=== PATIENT | male | born 1950 | race Caucasian/White ===

== ENCOUNTER 2019-04-24 06:16 | Day surgery (SDC) | payer MEDICARE, BC ==
[2019-04-23 10:59] VITALS: BMI 32.3
[2019-04-24 07:53] LABS: INR-International Normal Ratio 1.1; PTT 27.8 SEC (22.9-36.1); Prothrombin Time 14.1 SEC (12.0-14.7)
[2019-04-24 07:54] LABS: Anion Gap 13 mmol/L (10-20); BUN (Urea Nitrogen) 16 mg/dL (8.4-25.7); Calc. Creatinine Clearance 53 mL/min (70-130); Calcium 9.2 mg/dL (7.8-10.44); Carbon Dioxide 26 mmol/L (23-31); Chloride 102 mmol/L (98-107); Estimated GFR-MDRD 39; Glucose 141 mg/dL (80-115); Sodium 137 mmol/L (136-145)
--- NOTE | 2019-04-24 08:53 | RAD ---
KUB: INDICATIONS: Preop evaluation. COMPARISON: None. FINDINGS: No suspicious calcification is evident. Bowel gas pattern is not obstructed. No acute osseous abnor mality is noted. There is moderate disk degenerative disease in the mid lumbar spine. IMPRESSION: No acute abnormality. POS: OFF
[2019-04-24] MEDS ORDERED: Morphine 4 MG/ML VIAL ONE (09:08)
[2019-04-24] MEDS ORDERED: Fentanyl 100 MCG/2 ML VIAL ONE (09:09)
[2019-04-24] MEDS ORDERED: Iothalamate Meglumine 60% 50 ML VIAL FS ONE (09:38)
--- NOTE | 2019-04-24 12:11 | OP ---
DATE OF PROCEDURE: 04/24/2019 PREOPERATIVE DIAGNOSIS: Left ureteral stone. POSTOPERATIVE DIAGNOSIS: Left ureteral stone. PROCEDURES PERFORMED: Cysto, left retrograde, left extracorporeal shock wave lithotripsy, and left stent placement. ANESTHESIA: General. ESTIMATED BLOOD LOSS: Not recorded. FINDINGS: The patient had no evidence of stricture disease. Moderately enlarged prostate gland. A lot of blood in the bladder, but no tumor, foreign bodies, stone, or fistula. The stone that had been in the proximal ureter a few days ago in the ER, has migrated down into the distal ureter, was impacted there, could not get a 5-Bermudian Pollack catheter by it. Wire could go by it. As soon as a wire went by it, he drained out old blood and debris with brisk efflux. Still after the wire was placed, could not get a Pollack to go by this point. For this reason, we went ahead and then placed a Enon in and filled up his upper collecting system and upper ureter with contrast and then treated this area with the contrast pointed down to where the stone was, and then at the end of that, we were able to then pass a stent. DESCRIPTION OF PROCEDURE: Obtained written and verbal consent from the patient after receiving IV antibiotics. After documented his blood works and after looking at his preoperative KUB, he was taken to the operating suite. He was placed in the supine position on the treatment table. PlexiPulses were placed in his lower extremities and turned on. He was given a general anesthetic and oral obturator intubation. He was looked at with the fluoroscopy unit along the course of the ureter, could not see an obvious stone. For this reason, he was placed in the dorsal lithotomy position and sterilely prepped and draped. Cystoscopy was performed with a 22-Bermudian sheath. This was well lubricated and passed under direct vision through the male urethra into the urinary bladder with the aid of a 30-degree lens and video camera and monitor. The bladder had a lot of blood in it and the patient has been having more pain over the last day, more gross hematuria. This was all irrigated out. The bladder was then inspected with both the 30 and the 70-degree lens. Once we had filled and emptied number of times, it was much clear to visualize. At this point, a 5-Bermudian Pollack catheter was flushed with contrast and placed in the left ureteral orifice. It went in maybe couple centimeters and met some obstruction. We injected contrast and you could see a filling defect down in this region with some dilated ureter above it. We could not get the Enon by this point, so we brought in a guidewire and we were able to get the guidewire by this and once this occurred, then we had very brisk efflux of old blood and debris draining out, not pus, but just blood and debris into the bladder. We then fed the guidewire all the way up into the renal pelvis region and attempted again to pass a Enon catheter by this, but still would not go by this point, so for this reason, we went ahead and through the Enon catheter, injected about 20 mL of contrast into a dilated upper collecting system and ureter. We then removed the instruments and the guidewire and the Enon catheter. Placed him in the supine position and treated him with shockwave lithotripsy. Because of his size, we cannot treat him from posteriorly, but we treated from anteriorly placing the area, where the obstructed ureter was in treatment focal point, was treated with 1500 shocks at maximum kV level of 5. At this point in period, the contrast was all going down into the bladder. He at this point, was returned to the dorsal lithotomy position and recystoscoped . We drained out the blood. There was actually number of small stone fragments in the bladder also. We then did a retrograde study again on that side and again met resistance with the Enon catheter and could not get it by the distal ureter. The guidewire easily went by it and we brought in at that point, a 4.8 x 26 cm double-J stent and placed over the guidewire. It actually went up fairly easily by the stone or by the distal ureter and up into the renal pelvis, where when the wire was removed, it was coiled in the renal pelvis and coiled in the bladder and it was effluxing a bloody urine. At this point, the bladder was drained. The instruments were removed. He was awakened, extubated, and taken by the stretcher to the recovery room. Job ID: [id number]
--- NOTE | 2019-04-24 16:56 | EKG ---
Test Reason : PREOP Blood Pressure : / mmHG Vent. Rate : 070 BPM Atrial Rate : 070 BPM P-R Int : 146 ms QRS Dur : 092 ms QT Int : 376 ms P-R-T Axes : 055 016 030 degrees QTc Int : 406 ms Normal sinus rhythm Normal ECG When compared with ECG of 24-OCT-1998 03:48, Vent. rate has decreased BY [address] Braeden RIVERO ([id number]) on 04/24/2019 4:56:02 PM Referred By: SILVERIO Confirmed By:DR. Braeden RIVERO
== END 2019-04-24 14:00 | disposition home or self-care (01) ==
LOC: SDC 06:16
PROVIDERS: ATTEND Urology
PROC: 0TF7XZZ Fragmentation in Left Ureter, External Approach (ICD-10-PCS; principal; 2019-04-24)
PROC: 0T778DZ Dilation of Left Ureter with Intraluminal Device, Via Natural or Artificial Opening Endoscopic (ICD-10-PCS; 2019-04-24)
DX: N20.1 Calculus of ureter (principal); I10 Essential (primary) hypertension; E11.9 Type 2 diabetes mellitus without complications; Z79.2 Long term (current) use of antibiotics; Z79.4 Long term (current) use of insulin; Z79.899 Other long term (current) drug therapy; Z88.5 Allergy status to narcotic agent
CPT/HCPCS: 50590; 52332; 74018; 80048; 85610; 85730; 93005; C1758; 93010; J0690; J2270; J3010